=== PATIENT | female | born 1995 | race Two or more races ===

== ENCOUNTER 2018-05-12 16:19 | Emergency (ER) | payer OTHER ==
[2018-05-12] MEDS ORDERED: IBUPROFEN 600 MG TAB PO ONE (16:44)
[2018-05-12] MEDS ORDERED: LET GEL TOPICAL 1 EA SYR TP ONE (16:45)
--- NOTE | 2018-05-12 16:49 | EDPHY ---
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 She reports that the some pain worsens with movement with no other exacerbating factors. She notes associated tenderness. She has not had any medications prior to arrival. ROS: Constitutional: No complaints neuro: No numbness or tingling the affected thumb. Musculoskeletal: No other injuries. 5 point ROS is otherwise negative besides what is mentioned in HPI and ROS. Physical Exam: Physical Exam Vital signs are normal. General: No acute distress HEENT: Atraumatic. Eyes: Pupils equal and react to light. Extraocular motions are intact. Lungs: No respiratory distress. Cardiac: Brisk capillary refill is intact throughout. Pulses are 2+ and symmetric in the affected extremity. Skin: No rash or pallor. Extremities: Atraumatic normal except for left hand Left hand: Patient has mild swelling tenderness to the 1st metacarpophalangeal joint with limited range of motion. There is a superficial laceration to the palmar aspect at the same location with no active bleeding that is 2 cm in length. There is no gross deformity. Neuro: Alert with no sensorimotor deficits in the affected extremity pain Initial differential diagnosis: Fracture, sprain, contusion, superficial laceration Constitutional: Initial Vital Signs Temperature (C) 36.7 C 05/12/18 16:24 Heart Rate 65 05/12/18 16:24 Respiratory Rate 16 05/12/18 16:24 Blood Pressure 98/61 L 05/12/18 16:24 O2 Sat (%) 96 05/12/18 16:24 O2 Delivery Mode Room Air Allergies/Adverse Reactions: No Known Allergies Allergy (Verified 05/12/18 16:23) Home Medications: Medication Instructions Recorded Ibuprofen [Motrin (*)] 600 mg PO Q6 PRN #30 tab 05/12/18 MDM/Departure - MDM Diagnostics: Thumb x-rays: Nondisplaced small avulsion fracture to the distal 1st metacarpal by my interpretation. Imaging Results: Imaging Impressions Finger X-Ray 05/12/18 16:44 Impression: Nondisplaced fracture at the radial aspect of the head of the 1st metacarpal. Imaging: I viewed and interpreted images myself (However also discussed this image with our radiologist Dr. Mendoza) Procedures: Hand laceration: After verbal consent patient's hand was treated with let solution anesthesia with good effect. It was then scrubbed with baby shampoo and saline by our nurse. A performed Dermabond closure of the wound. Patient tolerated this well. There were no complications. Medications Given: Discontinued Medications Diphtheria/Tetanus/Acell Pertussis (Boostrix) 0.5 ml IM .ONCE ONE Stop: 05/12/18 17:02 Last Admin: 05/12/18 17:33 Dose: 0.5 ml Ibuprofen (Motrin) 600 mg PO EDNOW ONE Stop: 05/12/18 16:45 Last Admin: 05/12/18 16:52 Dose: 600 mg Tetracaine/Epinephrine/Lidocaine (Let Gel Topical) 1 ea TP EDNOW ONE Stop: 05/12/18 16:46 Last Admin: 05/12/18 16:54 Dose: 1 ea ED Course/Re-evaluation: Let solution is placed to the patient's superficial laceration is cleaned by our nurse. SPLINTING: Patient is placed in Ortho Glass thumb spica splint by our tech with my supervision. She is neurovascularly intact post splint application. - Depart Disposition: Home, Routine, Self-Care Clinical Impression: Fracture of metacarpal base, first, closed Qualifiers: Encounter type: initial encounter Fracture morphology: unspecified fracture morphology Fracture alignment: nondisplaced Laterality: left Qualified Code(s): S62.235A - Other nondisplaced fracture of base of first metacarpal bone, left hand, initial encounter for closed fracture Superficial laceration of left hand Qualifiers: Encounter type: initial encounter Qualified Code(s): S61.412A - Laceration without foreign body of left hand, initial encounter Condition: Good Instructions: Thumb Fracture (ED), Skin Adhesive Care (ED) Additional Instructions: Diagnosis: 1. Thumb fracture 2. Superficial laceration Plan: Keep the thumb splint in place clean and dry until follow up with the orthopedic physician. Call the orthopedic physician to arrange follow-up appointment for sometime early next week for further evaluation and treatment Ibuprofen Tylenol as needed for pain No use at work of the affected hand until follow-up with orthopedic physician Stand Alone Forms: Work Limited Duty Referrals: NONE *PRIMARY CARE P,. [Primary Care Provider] - As per Instructions Marquita Marcos MD [Medical Doctor] - As per Instructions
[2018-05-12] MEDS ORDERED: TDAP ADULT 0.5 ML INJ (BOOSTRIX) IM ONE (17:01)
[2018-05-12] MEDS ORDERED: SKIN ADHESIVE (DERMABOND) 1 EACH TP ONE (17:32)
[2018-05-12 18:39] VITALS: BP 109/58
== END 2018-05-12 18:37 | disposition home or self-care (01) ==
LOC: CED 16:19
PROC: 2W3FX1Z Immobilization of Left Hand using Splint (ICD-10-PCS; principal; 2018-05-12)
DX: S62.235A Other nondisplaced fracture of base of first metacarpal bone, left hand, initial encounter for closed fracture (principal); S61.412A Laceration without foreign body of left hand, initial encounter; Z23 Encounter for immunization; W23.0XXA Caught, crushed, jammed, or pinched between moving objects, initial encounter; Y99.0 Civilian activity done for income or pay; Y92.89 Other specified places as the place of occurrence of the external cause; Y93.9 Activity, unspecified
CPT/HCPCS: 73140-PO